=== PATIENT | male | born 1990 | race Two or more races ===

== ENCOUNTER 2017-04-08 11:12 | Emergency (ER) | payer SELFPAY ==
[~2017-04-08] VITALS: Ht 177.8 cm; Wt 70.3 kg
[2017-04-08 11:33] VITALS: BP 157/68
--- NOTE | 2017-04-08 12:49 | Emergency Room Report ---
History of Present Illness General Chief Complaint: Pain Source: Patient Present Illness HPI The patient is a 27-year-old male with a history of seizure disorder presenting for right sided rib pain after he states he had a seizure. This was one week prior. He states was witnessed by family member. He did not seek any medical attention afterwards. He has not been on any seizure medications for the past 2 years and is unsure of what he used to take. Pain is described as a 10 out of 10 dull ache to the right lower ribs and does not radiate. Worse with touch and deep breaths. He denies any shortness of breath. He has tried Motrin which does help slightly. He denies any other symptoms including hemoptysis, nausea, vomiting, fever, dizziness, headache, neck pain or stiffness Allergies: Coded Allergies: No Known Allergies (Unverified , 04/08/17) Patient History Past Medical History: see triage record Pertinent Family History: none Reviewed Nursing Documentation: PMH: Agreed, PSxH: Agreed Nursing Documentation-PMH Past Medical History: No History, Except For Hx Seizures: Yes Review of Systems All Other Systems: negative except mentioned in HPI Physical Exam Vital Signs Date Time Temp Pulse Resp B/P Pulse Ox O2 Delivery O2 Flow Rate FiO2 04/08/17 11:17 98.4 86 20 157/68 100 Room Air Sp02 EP Interpretation: reviewed, normal General Appearance: no apparent distress, alert, GCS 15, non-toxic Head: normocephalic, atraumatic Eyes: bilateral eye PERRL, bilateral eye normal inspection ENT: hearing grossly normal, normal pharynx, no angioedema, normal voice Neck: full range of motion, supple/symm/no masses Respiratory: lungs clear, normal breath sounds, speaking full sentences Cardiovascular #1: regular rate, rhythm, no edema Musculoskeletal: normal inspection, normal range of motion, tender - TTP over the R lateral thoracic ribs Neurologic: alert, oriented x3, responsive, motor strength/tone normal, sensory intact, speech normal Psychiatric: judgement/insight normal, memory normal, mood/affect normal, no suicidal/homicidal ideation Skin: normal color, no rash, warm/dry, well hydrated Medical Decision Making PA Attestation Dr. Alcantar is my supervising physician. Patient management was discussed with my supervising physician Diagnostic Impression: Primary Impression: Seizure disorder Additional Impression: Contusion of rib on right side Qualified Codes: S20.211A - Contusion of right front wall of thorax, initial encounter ER Course The patient is a 27-year-old male with a history of seizure disorder presenting for R rib pain Ddx considered include but not limited to sprain/strain, pneumothorax, fracture , contusion PE: vitals WNL. NAD Head is NC/AT. PERRL RRR. Lungs CTA bilat. TTP over the R thoracic lateral ribs. No deformity. No flail chest. Xray unremarkable. Pt is given pain medication and feels better. Most likely contusion. He is given prescription for Keppra but told he urgently needs to FU with PMD for prison treatment of seizures. ER precautions given. Other X-Ray Diagnostic Results Other X-Ray Diagnostic Results : X-Ray ordered: R rib # of Views/Limited Vs Complete: 2 View Indication: Pain EP Interpretation: Yes Interpretation: no dislocation, no soft tissue swelling, no fractures Impression: No acute disease Interpreting ER Provider: Dr. Ortiz BLACKMON Scribe Text I am acting as scribe for my supervising physician. My supervising physician's interpretation of the R rib xrays are there are no fractures, pneumothorax, or soft tissue swelling. Last Vital Signs Date Time Temp Pulse Resp B/P Pulse Ox O2 Delivery O2 Flow Rate FiO2 04/08/17 11:52 98.4 04/08/17 11:33 20 157/68 100 Room Air 04/08/17 11:17 86 Status: improved Disposition: HOME, SELF-CARE Condition: Improved Scripts Levetiracetam (KEPPRA) 500 Mg Tablet 500 MG ORAL EVERY 12 HOURS, #60 TAB 0 Refills Prov: TERROMULOANNIKO P.A. 04/08/17 Tramadol Hcl* (ULTRAM*) 50 Mg Tablet 50 MG ORAL Q6H Y for For Pain, #10 TAB 0 Refills Prov: TERZIAN,NIKO P.A. 04/08/17 Ibuprofen* (MOTRIN*) 600 Mg Tablet 600 MG ORAL Q8H Y for For Pain, #30 TAB 0 Refills Prov: TERZIANNIKO P.A. 04/08/17 Referrals: NOT CHOSEN [facility]/,REFERRING (PCP) NIKO MORRIS P.ADannie Apr 08, 2017 12:49
--- NOTE | 2017-04-08 13:24 | Diagnostic Imaging Report ---
Indications: Right rib cage trauma and pain. Technique: 4 views of the right ribs. Findings: Comparison: None. No fracture, lytic destruction, periosteal reaction, or other acute skeletal changes are identified. The overlying chest wall soft tissues, underlying pleura and pulmonary parenchyma are unremarkable. IMPRESSION: Negative right rib series.
[2017-04-08] MEDS ORDERED: TRAMADOL HCL50 MG ORAL (13:27)
[2017-04-08] MEDS ORDERED: IBUPROFEN600 MG ORAL (13:27)
[2017-04-08] MEDS ORDERED: KEPPRA500 M4 ORAL (13:27)
[2017-04-08] MEDS ORDERED: Norco 5mg/325mg tab ORAL ONE (13:30)
[2017-04-08 13:43] VITALS: BP 130/82
== END 2017-04-08 13:47 | disposition home or self-care (01) ==
LOC: EMR 12:17
DX: G40.909 Epilepsy, unspecified, not intractable, without status epilepticus (principal); S20.211A Contusion of right front wall of thorax, initial encounter; X58.XXXA Exposure to other specified factors, initial encounter; Y93.9 Activity, unspecified; Y92.9 Unspecified place or not applicable
CPT/HCPCS: 99284